=== PATIENT | male | born 1950 | race Asian ===

== ENCOUNTER 2021-02-10 12:39 | Emergency (ER) | payer MEDICAID, MEDICARE ==
--- NOTE | 2021-02-10 13:20 | ED Physician Documentation ---
History of Present Illness - Stated complaint Stated Complaint: BACK INJ - Chief complaint Chief Complaint: Trauma Ch/Bk - Additonal information Additional information: 70-year-old male presents emergency department for evaluation of low back pain. 3 days ago he was working on a small tractor at home that had a front core loader. As he was driving at the bucket was very heavy and full and he was driving on a hill unfortunately the tractor became unbalanced and started to roll. The patient jumped free of the tractor and landed on his back and bottom. He was able to get up on his own. However since then he has noticed pain in his low ba ck especially when laying flat or supine. He reports excruciating pain in the morning when attempting to get up out of bed. He has had no fevers, no saddle anesthesia. He does have a remote history of a spinal surgery that sounds like a discectomy about 20 years ago. Past medical history includes coronary artery disease status post stenting x2 as well as diabetes. Review of Systems Constitutional: denies: Fever, Chills Eyes: reports: Reviewed and negative Ears: reports: Reviewed and negative Nose: reports: Reviewed and negative Cardiac: reports: Reviewed and negative Respiratory: reports: Reviewed and negative GI: reports: Reviewed and negative : reports: Reviewed and negative Skin: reports: Reviewed and negative Musculoskeletal: reports: Back pain Neurologic: denies: Generalized weakness, Focal weakness, Numbness, Difficulty speaking, Near syncope Psychiatric: reports: Reviewed and negative PD PAST MEDICAL HISTORY - Present Medications Home Medications: Ambulatory Orders Medication Instructions Recorded Confirmed Atorvastatin [Lipitor] 20 mg ORAL HS 02/10/21 02/10/21 Enalapril [Vasotec] 5 mg PO DAILY 02/10/21 02/10/21 Ibuprofen [Motrin] 600 mg PO Q6H PRN #30 tab 02/10/21 Insulin Aspart [NovoLOG] 12 units SQ TID 02/10/21 02/10/21 Insulin Glargine,Hum.rec.anlog 32 unit SUBQ HS 02/10/21 02/10/21 [Basaglar Kwikpen U-100] Methocarbamol [Robaxin-750] 750 mg PO BID PRN #20 tablet 02/10/21 Metoprolol Tartrate [Lopressor] 25 mg PO BID 02/10/21 02/10/21 - Allergies Allergies/Adverse Reactions: Allergies Allergy/AdvReac Type Severity Reaction Status Date / Time No Known Drug Allergies Allergy Verified 02/10/21 12:48 PD ED PE EXPANDED - General General: Alert, No acute distress, Well developed/nourished - Cardiac Cardiac: Regular Rate, Radial strong equal, Cap refill < 2 sec - Respiratory Respiratory: Clear to ausultation jaja. No: Distress - Back Back: Vertebral tenderness, Soft tissue tenderness (Normal gait. Motor strength 5 of 5 bilateral lower extremities. Some tenderness of the left lower paraspinous muscles as well as midline vertebral body tenderness the lumbar spine.), Other (Well-healed vertical lower lumbar incision well-healed.). No: CVA TTP right, CVA TTP left Results - Vitals Vitals: Vital Signs - 24 hr 02/10/21 12:48 Temperature 36.4 C L Heart Rate 81 Respiratory 18 Rate Blood Pressure 147/73 H O2 Saturation 96 Oxygen O2 Source Room air - Rads (name of study) lumbar CT Radiology: Final report received (Negative for acute fracture. Degenerative changes are seen which are overall worse at L5-S1.) PD MEDICAL DECISION MAKING - ED course Complexity details: reviewed results, re-evaluated patient, d/w patient ED course: 70-year-old male presents emergency department for evaluation of acute low back pain sustained when he jumped free of his tractor that became unbalanced and started to roll 2 days ago. He landed on his bottom but has had pain since then which is significantly worse when laying flat in bed at night. He did not have saddle anesthesia loss of bowel or bladder function. He does have a normal gait but except again expresses excruciating pain with supine in bed at night. There was some midline vertebral tenderness elicited therefore CT of the lumbar spine was completed that did not show any acute fracture but there is significant degenerative disc disease. I suspect that this gentleman has pain worsening at night likely due to spasm when supine. We will write a prescription for a limited amount of methocarbamol as well as NSAID medication ibuprofen which has provided some relief. Emergent return precautions were discussed. Patient does have primary provider for which she will follow-up. Departure - Departure Disposition: 01 Home, Self Care Clinical Impression: Degenerative disc disease, lumbar Low back pain Qualifiers: Chronicity: acute Back pain laterality: left Sciatica presence: without sciatica Qualified Code(s): M54.5 - Low back pain Condition: Stable Record reviewed to determine appropriate education?: Yes Instructions: ED Sprain Strain Lumbar, ED Contusion Back, ED Spasm Back No Trauma Follow-Up: Barbie Wren MD [Primary Care Provider] - Prescriptions: Ibuprofen [Motrin] 600 mg PO Q6H PRN #30 tab PRN Reason: Pain Methocarbamol [Robaxin-750] 750 mg PO BID PRN #20 tablet PRN Reason: Spasms Comments: You are seen in the emergency department today for low back pain after you jumped free of your rolling tractor a few days ago. The CAT scan of your lumbar spine does not show any broken bones but you do have degenerative disc disease, which is when the cushioning between the vertebrae begins to wear down. I suspect that most the pain you are having at nighttime is due to the development of muscle spasm when you are not moving. I would like you to take the methocarbamol before going to bed. Please be careful getting up in the middle of the night with this as it may make you somewhat dizzy. I do also recommend that you continue to take the ibuprofen with food 2-3 times a day to help with generalized pain. Please discuss this ED visit with your primary care provider. You may benefit from physical therapy in the long-term for follow-up. If at any point you develop fevers, have loss of bowel or bladder function Or feel that your symptoms are not Improving please return immediately to the emergency department
--- NOTE | 2021-02-10 13:44 | CT Report ---
PROCEDURE: LUMBAR SPINE WO INDICATIONS: fall; clinical concern for fx TECHNIQUE: Noncontrast 3 mm thick sections acquired from the T12 level to the sacrum. Sagittal and coronal refo rmats were constructed. For radiation dose reduction, the following was used: automated exposure co ntrol, adjustment of mA and/or kV according to patient size. COMPARISON: None. FINDINGS: Image quality: Excellent. Bones: No acute vertebral body compression fractures. No suspicious lytic or blastic bony lesions. Central spinal caliber is of normal overall caliber. No pars defects. Minimal dextroconvex sclerotic curvature is seen. T12-L1: The disc height is well-preserved. Partially bridging anterior osteophytes are seen. No sign ificant neural foraminal or central canal narrowing can be seen. L1-L2: The disc height is well-preserved. Mild disc bulge is seen. No significant neural foramin al or central canal narrowing can be seen. L2-L3: The disc height is relatively well preserved. Mild to moderate disc bulge is seen at this l evel. Posteriorly directed endplate osteophytes are seen. Moderate bilateral neural foraminal narro wing is seen. Moderate central canal narrowing is seen. L3-L4: Mild loss of disc height is seen. Moderate disc bulge is seen, which is eccentric to the lef t. There is a central disc protrusion seen at this level. Mild facet hypertrophy is seen. Moderate bilateral neural foraminal narrowing is seen. At least moderate central canal narrowing can be seen . L4-L5: There is mild loss of disc height seen. At least moderate disc bulge is seen, with a central disc protrusion. Moderate facet hypertrophy is seen. Apparent prior right hemilaminotomy change ca n be seen. Please correlate with known patient history. There is at least moderate left-sided and mod erate to severe right-sided neuroforaminal narrowing seen. Moderate central canal narrowing is seen. L5-S1: At least moderate loss of disc height is seen. Endplate irregularity and sclerosis are seen, which are worse on the left than on the right. Partially bridging endplate osteophytes can be seen o n the left side. Posteriorly directed endplate osteophytes are seen. There is moderate to severe jaja ateral neuroforaminal narrowing seen. At least moderate central canal narrowing is seen at this level . Soft tissues: No retroperitoneal masses or hematomas. Visualized aorta is normal in caliber. Ather osclerotic calcification is seen. Right kidney stones are incidentally noted that measure up to 5 mm. A simple appearing right-sided peripelvic cyst can be seen. IMPRESSION: Negative for acute fracture. Degenerative changes are seen, which are overall worst at L5-S1. If it would be helpful for clinical management decision making, please consider a dedicated lumbar MR I for further evaluation (assuming that there is no contraindication). Incidental note is made of: Nonobstructing right-sided kidney stones Reviewed by: Vega Villalba MD on 02/10/2021 12:43 PM [facility] Approved by: Vega Villalba MD on 02/10/2021 12:43 PM [facility] Station ID: [id number]
--- OUTSIDE RECORDS SUMMARY | 2021-02-10 13:44 | EXTERNAL MEDICAL SUMMARY RPT | Continuity of Care Document ---
:1950 Demographics Phone Unavailable Preferred Language Unknown Marital Status Unknown [employer] Affiliation Unknown Race Unknown Ethnic Group Unknown Author Organization [facility] Address [address] [phone] Phone Social History date description facility [id number]
[2021-02-10 14:23] VITALS: BP 110/75
== END 2021-02-10 14:55 | disposition home or self-care (01) ==
LOC: ED 12:39
DX: M54.5 Low back pain (principal); M51.36 Other intervertebral disc degeneration, lumbar region
CPT/HCPCS: 99283; 99284

== ENCOUNTER 2023-10-11 23:10 | Outpatient (CLI) | payer MEDICARE, MEDICAID | END 2023-10-11 23:11 | disposition short-term general hospital (02) | LOC: EMS 23:10 | DX: M25.512 Pain in left shoulder (principal); M25.552 Pain in left hip; M79.661 Pain in right lower leg; S09.90XA Unspecified injury of head, initial encounter; S49.92XA Unspecified injury of left shoulder and upper arm, initial encounter; W11.XXXA Fall on and from ladder, initial encounter; Y92.015 Private garage of single-family (private) house as the place of occurrence of the external cause | CPT/HCPCS: A0425; A0427 ==